=== PATIENT | female | born 1995 | race Caucasian/White ===

== ENCOUNTER → 2016-09-29 | Outpatient (CLI) | payer BC ==
--- NOTE | 2016-09-29 18:29 | REP ---
LUMBAR SPINE, FIVE VIEWS: HISTORY: Back pain. There is no acute fracture or subluxation. The L4-5 intervertebral disc is decreased in height consistent with disc degeneration. The facet joints are normal in appearance. IMPRESSION: Degenerative change as described above. Signed by Emanuel Black MD 09/29/2016 06:51 P
== END ==
LOC: M ADAMS 17:17
PROVIDERS: ATTEND Physician Assistant Medical
DX: M54.42 Lumbago with sciatica, left side (principal)

== ENCOUNTER → 2016-12-10 | Outpatient (REF) | payer BC | LOC: M LAB REF 12:07 | PROVIDERS: ATTEND Physician Assistant | DX: N39.0 Urinary tract infection, site not specified (principal) ==

== ENCOUNTER → 2017-03-19 | Outpatient (REF) | payer BC | LOC: M LAB REF 12:33 | PROVIDERS: ATTEND Physician Assistant Medical | DX: N30.01 Acute cystitis with hematuria (principal) ==

== ENCOUNTER → 2017-09-10 | Outpatient (REF) | payer BC | LOC: M LAB REF 19:15 | DX: N30.01 Acute cystitis with hematuria (principal) | CPT/HCPCS: 87186 ==

== ENCOUNTER → 2018-03-29 | Outpatient (REF) | payer BC | LOC: M LAB REF 20:30 | DX: N30.01 Acute cystitis with hematuria (principal) ==

== ENCOUNTER → 2021-03-11 | Outpatient (REF) | payer BC ==
[2021-03-11 17:58] LABS: HEMATOCRIT 38.2 % (36.0-47.0); HEMOGLOBIN 13.1 g/dl (12.0-15.5); MEAN CORPUSCULAR HEMOGLOBIN 28.8 pg (27.0-33.0); MEAN CORPUSCULAR HGB CONC 34.3 g/dl (32.0-36.5); PLATELET COUNT, AUTOMATED 306 10^3/uL (150-450); RED BLOOD COUNT 4.55 10^6/uL (4.00-5.40); WHITE BLOOD COUNT 9.2 10^3/uL (4.0-10.0)
[2021-03-11 18:46] LABS: HCG, SERUM QUANTITATIVE 10644 MIU/ML; HEPATITIS B SURFACE ANTIGEN NEGATIVE (NEGATIVE)
[2021-03-11 19:13] LABS: HIV 1&2 SCREEN CENTAUR NEGATIVE (NEGATIVE)
== END ==
LOC: M LAB REF 17:03
PROVIDERS: ATTEND Obstetrics & Gynecology
DX: O36.80X0 Pregnancy with inconclusive fetal viability, not applicable or unspecified (principal); Z32.01 Encounter for pregnancy test, result positive

== ENCOUNTER → 2021-07-30 | Outpatient (CLI) | payer BC ==
[2021-07-30 16:26] LABS: BASO % 0.3 % (0.0-1.0); EOS # 0.1 10^3/uL (0.0-0.5); EOS % 0.9 % (0.0-3.0); LYMPH # 1.7 10^3/uL (1.5-5.0); LYMPH % 14.2 % (24.0-44.0); MEAN CORPUSCULAR HEMOGLOBIN 28.6 pg (27.0-33.0); MEAN CORPUSCULAR HGB CONC 33.3 g/dl (32.0-36.5); MEAN CORPUSCULAR VOLUME 85.9 fl (80.0-96.0); MONO # 0.7 10^3/uL (0.0-0.8); MONO % 5.9 % (2.0-8.0); PLATELET COUNT, AUTOMATED 230 10^3/uL (150-450); RED BLOOD COUNT 4.19 10^6/uL (4.00-5.40); WHITE BLOOD COUNT 11.6 10^3/uL (4.0-10.0)
== END ==
LOC: M WUC 14:02
PROVIDERS: ATTEND Advanced Practice Midwife
DX: Z34.02 Encounter for supervision of normal first pregnancy, second trimester (principal)

== ENCOUNTER → 2021-10-07 | Outpatient (REF) | payer BC, OTHER | LOC: M LAB REF 12:39 | PROVIDERS: ATTEND Obstetrics & Gynecology | DX: Z36.89 Encounter for other specified antenatal screening (principal) ==

== ENCOUNTER → 2022-09-18 | Outpatient (CLI) | payer BC, OTHER ==
[~2022-09-18] MED LIST: IBUP80TA PO; OXYC1TAB23 PO
[2022-09-18 17:35] LABS: FREE T4 1.03 NG/DL (0.89-1.76); THYROID STIMULATING HORMONE 1.142 uIU/ML (0.55-4.78)
[2022-09-18 17:38] LABS: THYROID PEROXIDASE ANTIBODY < 28.0 U/ML (<60.0)
== END ==
LOC: M PLALAB 14:58
PROVIDERS: ATTEND Internal Medicine Endocrinology, Diabetes & Metabolism
DX: R94.6 Abnormal results of thyroid function studies (principal)

== ENCOUNTER → 2022-10-29 | Outpatient (CLI) | payer BC, OTHER ==
[2022-10-29 15:24] LABS: FREE T4 1.15 NG/DL (0.89-1.76); THYROID STIMULATING HORMONE 1.48 uIU/ML (0.55-4.78)
== END ==
LOC: M PLALAB 10:17
PROVIDERS: ATTEND Internal Medicine Endocrinology, Diabetes & Metabolism
DX: R94.6 Abnormal results of thyroid function studies (principal)